=== PATIENT | male | born 1975 | race Caucasian/White ===

== ENCOUNTER → 2024-05-21 | Outpatient (CLI) | payer MEDICAID, SELFPAY ==
--- NOTE | 2024-05-21 | XR_ITS ---
Examination: Hand, right 3 views Technique: Hand AP, oblique, lateral 3 views Date and time of exam: May 21, 2024 1244 hours INDICATIONS: Wrist fractures 6 months ago FINDINGS: Prominent osteopenia No acute fracture Old fracture deformity distal radius with satisfactory alignment IMPRESSION: Old fracture deformity distal radius with satisfactory alignment
--- NOTE | 2024-05-21 | XR_ITS ---
Examination: Wrist, right 3 views Technique: Wrist AP, oblique, lateral 3 views Date and time of exam: May 21, 2024 1244 hours INDICATIONS: Right wrist fracture 6 months ago FINDINGS: Old healed mild fracture deformity distal radius No acute fracture Severe osteopenia IMPRESSION: Healed fracture distal radius with satisfactory alignment
== END | disposition home or self-care (01) ==
PROVIDERS: PCP Family Medicine; Referring Provider Surgery; Visit Provider Surgery
DX: M25.531 Pain in right wrist (principal); M79.641 Pain in right hand; S62.101S Fracture of unspecified carpal bone, right wrist, sequela; X58.XXXS Exposure to other specified factors, sequela
CPT/HCPCS: 73110; 73130

== ENCOUNTER → 2024-08-07 | Outpatient (CLI) | payer MEDICAID, SELFPAY ==
--- NOTE | 2024-08-07 10:56 | XR_ITS ---
Examination: Wrist, right 3 views Technique: Wrist AP, oblique, lateral 3 views Date and time of exam: August 07, 2024 1202 hours INDICATIONS: Injury to the wrist this week, wrist pain FINDINGS: Mild osteopenia No acute fracture No dislocation IMPRESSION: No acute fracture
--- NOTE | 2024-08-07 10:56 | XR_ITS ---
Examination: Hand, left hand 3 views Technique: Hand AP, oblique, lateral 3 views Date and time of exam: 2024 1202 hours INDICATIONS: Injury to the hand this week, hand pain FINDINGS: Acute fracture midportion distal phalanx third digit with 1 mm offset on the lateral view at the fracture site No foreign body IMPRESSION: Acute fracture distal phalanx third digit
== END | disposition home or self-care (01) ==
LOC: CDIM 10:43
PROVIDERS: PCP Nurse Practitioner Gerontology; Referring Provider Nurse Practitioner Gerontology; Visit Provider Nurse Practitioner Gerontology
DX: S62.633A Displaced fracture of distal phalanx of left middle finger, initial encounter for closed fracture (principal); S69.92XA Unspecified injury of left wrist, hand and finger(s), initial encounter; X58.XXXA Exposure to other specified factors, initial encounter
CPT/HCPCS: 73110; 73130

== ENCOUNTER → 2024-09-26 | Outpatient (CLI) | payer MEDICAID, SELFPAY ==
--- NOTE | 2024-09-26 | XR_ITS ---
Examination: Wrist, left 3 views Technique: Wrist AP, oblique, lateral 3 views Date and time of exam: September 26, 2024 1132 hrs. Indications: Acute fracture distal phalanx third digit August 09, 2024 Findings: Prominent osteopenia No acute wrist fracture No foreign body Impression: No acute torus fracture
--- NOTE | 2024-09-26 | XR_ITS ---
Examination: Hand, left 3 views Technique: Hand AP, oblique, lateral 3 views Date and time of exam: September 26, 2024 at 1130 hrs. Comparison August 07, 2024 Indications: Acute fracture midportion distal phalanx third digit August 07, 2024 Findings: Fracture midportion distal phalanx third digit Identified Findings suspicious for nonunion at the fracture site Impression: Findings suspicious for nonunion at the fracture site distal phalanx third digit, recommend continued follow-up
== END | disposition home or self-care (01) ==
LOC: CDIM 10:52
PROVIDERS: PCP Family Medicine; Referring Provider Nurse Practitioner Gerontology; Visit Provider Nurse Practitioner Gerontology
DX: M25.532 Pain in left wrist (principal); M79.642 Pain in left hand; S62.633 Displaced fracture of distal phalanx of left middle finger; X58.XXXS Exposure to other specified factors, sequela
CPT/HCPCS: 73110; 73130

== ENCOUNTER → 2024-11-09 | Outpatient (CLI) | payer MEDICAID, SELFPAY ==
--- NOTE | 2024-11-09 09:36 | XR_ITS ---
Examination: Hand, left 3 views Technique: Hand AP, oblique, lateral 3 views Date and time of exam: November 09, 2024 1004 hours INDICATIONS: Fracture distal phalanx third digit September 26, 2024 FINDINGS: Fracture distal phalanx third digit is again depicted Fracture line is still evident on the lateral view IMPRESSION: Recommend continued follow-up to document more complete healing fracture distal phalanx third digit
--- NOTE | 2024-11-09 09:36 | XR_ITS ---
Examination: Wrist, right 3 views Technique: Wrist AP, oblique, lateral 3 views Date and time of exam: November 09, 2024 1004 hours INDICATIONS: History wrist fracture November 2023 FINDINGS: Severe osteopenia Healed fracture distal radial metaphysis No acute fracture IMPRESSION: Healed fracture distal radial metaphysis with satisfactory alignment
== END | disposition home or self-care (01) ==
DX: S62.633A Displaced fracture of distal phalanx of left middle finger, initial encounter for closed fracture (principal); X58.XXXA Exposure to other specified factors, initial encounter; M25.531 Pain in right wrist
CPT/HCPCS: 73110; 73130

== ENCOUNTER 2025-01-25 14:23 | Emergency (ER) | payer MEDICAID, SELFPAY ==
[2025-01-25 14:40] VITALS: BP 130/87; PULSE 77; RESP 20; TEMP 37.1; O2SAT 99; BMI 19.0
--- NOTE | 2025-01-25 14:45 | EKG_ITS ---
[facility] Test Date: 2025-01-25 Pat Name: FATUMA HERNANDEZ Department: Room: - Gender: Male [employer]: : [id number] Requested By: Austin Zhao Order Number: [id number] Reading MD: Austin Zhao Measurements Intervals Rush Rate: 79 P: 51 WI: 108 QRS: 67 QRSD: 86 T: 65 QT: 382 QTc: 439 Interpretive Statements SINUS RHYTHM WITH SHORT WI INTERVAL No previous ECG available for comparison /store/S0/[id number].pdf
--- NOTE | 2025-01-25 14:46 | PD.EDRME ---
Rapid Medical Screening Exam RME Arrival date/time: 01/25/25 14:23 49-year-old male with no known medical history presents to the emergency room with a chief complaint of palpitations, and shakiness. Patient states he believes he is withdrawing from alcohol. Patient states he drinks 5 tall cans of beer daily and his last drink was yesterday at 9 PM. I have greeted and performed a focused initial assessment of this patient. A comprehensive ED assessment and evaluation of the patient, analysis of all test results, and completion of the medical decision making process will be conducted by additional ED providers. Chief Complaint: Dizziness Time Seen by Provider: 01/25/25 14:26 Vital signs: Vital Signs Temperature 98.8 F 01/25/25 14:40 Pulse Rate 77 01/25/25 14:40 Respiratory Rate 20 01/25/25 14:40 Blood Pressure 130/87 H 01/25/25 14:40 Pulse Oximetry (%) 99 01/25/25 14:40 Oxygen Delivery Method Room Air 01/25/25 14:40 Vital signs reviewed by provider: Yes
[2025-01-25 15:15] LABS: Basophils # (Auto) 0.0 Thou/mm3 (0.0-0.2); Basophils % (Auto) 1 % (0-2.5); Eosinophils # (Auto) 0.0 Thou/mm3 (0.0-0.5); Eosinophils % (Auto) 0 % (0-10); Hematocrit 39.4 % (41.0-53.0); Hemoglobin 13.6 g/dL (13.5-16.0); Immature Granulocytes Auto 0.01 Thou/mm3 (0.00-0.00); Lymphocytes # (Auto) 0.6 Thou/mm3 (1.0-4.8); Lymphocytes % (Auto) 12 % (10-50); Mean Corpuscular HGB Conc 34.5 g/dl (31.0-37.0); Mean Corpuscular Hemoglobin 34.1 pg (25.0-35.0); Mean Corpuscular Volume 99 fL (80-100); Monocytes # (Auto) 0.5 Thou/mm3 (0.0-0.8); Monocytes % (Auto) 9 % (0-12); Neutrophils # (Auto) 4.0 Thou/mm3 (1.8-7.7); Neutrophils % (Auto) 78 % (37-80); Nucleated Red Blood Cell # 0.00 Thou/mm3 (0.00-0.00); Nucleated Red Blood Cell % 0 /100 WBC (0); Platelet Count 209 Thou/mm3 (140-440); RDW Standard Deviation 46.2 fL (35.1-43.9); Red Blood Count 3.99 Miln/mm3 (4.50-5.90); White Blood Count 5.1 Thou/mm3 (3.8-10.6)
[2025-01-25 15:27] LABS: Collection Type, Urine Clean Catch; Squamous Epithelial Cell,Urine 0 /hpf (0-5)
[2025-01-25 15:34] LABS: INR 1.0 (0.9-1.3); Partial Thromboplastin Time 26.8 Seconds (22.0-36.0); Prothrombin Time 10.6 Seconds (9.0-12.2)
[2025-01-25 15:42] LABS: Bilirubin,Urine Negative (Negative); Blood,Urine Negative (Negative); Clarity,Urine Clear (Clear/Hazy); Color,Urine Yellow (Lt Yel-Yel); Glucose, Urine Negative (Negative); Ketones,Urine 2+ (Negative); Leukocyte Esterase,Urine Negative (Negative); Nitrite,Urine Negative (Negative); PH,Urine 7.5 (5.0-7.0); Protein,Urine Trace (Neg - Trace); RBC,Urine 2 /hpf (0-3); Specific Gravity,Urine 1.027 (1.001-1.035); Urobilinogen,Urine Negative mg/dL (0.0-1.0); WBC,Urine 1 /hpf (0-5)
[2025-01-25 15:47] LABS: Amphetamine/Methamp Scrn,U Negative (Negative); Barbiturate Screen,Urine Negative (Negative); Benzodiazepines Screen,Urine Negative (Negative); Benzoylecgonine Screen, Ur Negative (Negative); Fentanyl Screen,Urine Negative (Negative); Opiate Screen,Urine Negative (Negative); THC Screen,Urine Negative (Negative)
[2025-01-25 15:51] LABS: B-Type Natriuretic Peptide < 20 pg/mL (0-100)
[2025-01-25 16:00] LABS: Alanine Aminotransferase 31 U/L (10-49); Albumin, Serum 4.7 gm/dL (3.5-5.0); Albumin/Globulin Ratio 2.0 (1.2-2.2); Alcohol, Blood Medical < 3.0 mg/dL (0-10.0); Alkaline Phosphatase 27 U/L (46-116); Anion Gap 10 (7-16); Aspartate Amino Transferase 54 U/L (0-34); BUN/Creatinine Ratio 11 Ratio (12-20); Bilirubin,Total 0.9 mg/dL (0.3-1.2); Blood Urea Nitrogen 8 mg/dL (9-23); Calcium 9.6 mg/dL (8.3-10.6); Calcium (Corrected) 9.6 mg/dL (8.5-10.1); Carbon Dioxide 26.6 mMol/L (20.0-31.0); Chloride 103 mMol/L (98-107); Creatinine (Component) 0.7 mg/dL (0.6-1.3); Estimated Creatinine Clearance 96.6 mL/min (>60); Globulin 2.4 gm/dL (2.3-3.5); Glucose 109 mg/dL (74-106); Magnesium 1.7 mg/dL (1.6-2.6); Osmolality,Calculated 278 (275-295); Potassium 3.7 mMol/L (3.4-5.1); Sodium 140 mMol/L (136-145); Total Protein 7.1 gm/dL (5.7-8.2); Troponin I < 0.002 ng/mL (0.0-0.045); eGFR > 60 See Note
--- NOTE | 2025-01-25 19:27 | PC.NURSE ---
NO ANSWER AT ER LOBBY OR OUTSIDE ER.
--- NOTE | 2025-01-25 20:09 | PC.NURSE ---
NO ANSWER AT ER LOBBY OR OUTSIDE ER TO BE RE EVALUATED.
--- NOTE | 2025-01-25 20:16 | PC.NURSE ---
NO ANSWER AT ER LOBBY OR OUTSIDE ER TO BE RE EVALUATED.
== END 2025-01-25 20:17 | disposition left against medical advice (07) ==
PROVIDERS: Nurse Practitioner Family; Emergency Provider Emergency Medicine
DX: R00.2 Palpitations (principal); R42 Dizziness and giddiness; R94.31 Abnormal electrocardiogram [ECG] [EKG]; Z53.29 Procedure and treatment not carried out because of patient's decision for other reasons
CPT/HCPCS: 36415; 80053; 80307; 80320; 81001; 83735; 83880; 84484; 85025; 85610; 85730; 93005; 99283; G0480